=== PATIENT | male | born 1960 | race African-American/Black ===

== ENCOUNTER 2022-03-14 19:07 | Emergency (ER) | payer OTHER ==
[~2022-03-14] VITALS: Ht 175.3 cm; Wt 65.0 kg
[2022-03-14 19:14] VITALS: BP 108/83
[2022-03-14] MEDS ORDERED: HYDR-4233 TP (22:19)
[2022-03-14] MEDS ORDERED: PERM60CR4 TP (22:19)
== END 2022-03-14 23:03 | disposition home or self-care (01) ==
LOC: ER 21:27
DX: R21 Rash and other nonspecific skin eruption (principal); E78.00 Pure hypercholesterolemia, unspecified; I10 Essential (primary) hypertension
CPT/HCPCS: 99282